=== PATIENT | female | born 1995 | race African-American/Black ===

== ENCOUNTER 2018-08-01 19:30 | Emergency (ER) | payer SELFPAY ==
[~2018-08-01] VITALS: Ht 165.1 cm; Wt 123.8 kg
--- OUTSIDE RECORDS SUMMARY | 2018-08-01 19:33 | XMS REPORT ---
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 Allergies, Adverse Reactions, Alerts Allergy Name Allergy Type Status Severity Reaction(s) Onset Date Inactive Date Treating Clinician Comments No Known Allergies DA Active U 2016-11-05 00:00:00 Medications This patient has no known medications.
== END 2018-08-01 22:00 | disposition home or self-care (01) ==
LOC: FSED 19:30
DX: R50.9 Fever, unspecified (principal); R05 Cough; J06.9 Acute upper respiratory infection, unspecified
CPT/HCPCS: 87400

== ENCOUNTER 2018-10-21 14:01 | Emergency (ER) | payer SELFPAY ==
[~2018-10-21] VITALS: Ht 165.1 cm; Wt 123.8 kg
[2018-10-21] MEDS ORDERED: DIPHTH/TETANUS/ACEL. PERTUSSIS 0.5 ML SYR IM ONE (16:00)
== END 2018-10-21 16:15 | disposition home or self-care (01) ==
LOC: FSED 14:01
DX: S91.202A Unspecified open wound of left great toe with damage to nail, initial encounter (principal); W51.XXXA Accidental striking against or bumped into by another person, initial encounter; Y92.008 Other place in unspecified non-institutional (private) residence as the place of occurrence of the external cause
CPT/HCPCS: 99283

== ENCOUNTER 2019-06-17 10:59 | Emergency (ER) | payer OTHER ==
[~2019-06-17] VITALS: Ht 165.1 cm; Wt 123.8 kg
== END 2019-06-17 12:10 | disposition home or self-care (01) ==
LOC: FSED 10:59
DX: M54.5 Low back pain (principal); N30.91 Cystitis, unspecified with hematuria; F41.9 Anxiety disorder, unspecified; F32.9 Major depressive disorder, single episode, unspecified
CPT/HCPCS: 81003; 81025; 99283

== ENCOUNTER 2019-07-01 09:42 | Emergency (ER) | payer OTHER ==
[~2019-07-01] VITALS: Ht 165.1 cm; Wt 131.5 kg
[2019-07-01] MEDS ORDERED: DEXAMETHASONE SOD PHOS 10 MG/1 ML VIAL IV ONE (10:15)
[2019-07-01] MEDS ORDERED: DIPHENHYDRAMINE HCL INJ 50 MG/ML VIAL IV ONE (10:15)
[2019-07-01] MEDS ORDERED: SODIUM CHLORIDE 0.9% 1000ML 1,000 ML IV STA (10:20)
[2019-07-01] MEDS ORDERED: ONDANSETRON HCL INJ 2MG/ML 2ML 2 MG/ML VIAL ONE (10:25)
[2019-07-01] MEDS ORDERED: SODIUM CHLORIDE 0.9% 1000ML 1,000 ML ONE (10:27)
[2019-07-01] MEDS ORDERED: ONDANSETRON HCL INJ 2MG/ML 2ML 2 MG/ML VIAL IV NR (10:30)
[2019-07-01 10:52] VITALS: BP 147/89
[2019-07-01] MEDS ORDERED: DEXAMETHASONE SOD PHOS 10 MG/1 ML VIAL ONE (11:23)
== END 2019-07-01 11:05 | disposition home or self-care (01) ==
LOC: FSED 09:42
DX: K52.9 Noninfective gastroenteritis and colitis, unspecified (principal); R51 Headache
CPT/HCPCS: 80053; 81003; 81025; 85025; 99283; J1100; J1200; J2405; J7030

== ENCOUNTER 2021-01-25 18:48 | Emergency (ER) | payer SELFPAY ==
[~2021-01-25] VITALS: Ht 165.1 cm; Wt 109.8 kg
== END 2021-01-25 20:48 | disposition home or self-care (01) ==
LOC: FSED 19:16
DX: N93.9 Abnormal uterine and vaginal bleeding, unspecified (principal); R10.30 Lower abdominal pain, unspecified; F41.9 Anxiety disorder, unspecified; F32.9 Major depressive disorder, single episode, unspecified; E66.01 Morbid (severe) obesity due to excess calories
CPT/HCPCS: 81003; 81025; 99283

== ENCOUNTER 2021-05-13 22:12 | Emergency (ER) | payer SELFPAY ==
[~2021-05-13] VITALS: Ht 165.1 cm; Wt 127.5 kg
[2021-05-13] MEDS ORDERED: PHENTERMINE H37.5 MG (23:51)
[2021-05-14] MEDS ORDERED: IBUPROFEN 600 MG TAB PO STA (00:28)
[2021-05-14] MEDS ORDERED: IBUPROFEN600 MG PO (00:34)
[2021-05-14] MEDS ORDERED: CYCLOBENZAPRINE10 MG PO (00:35)
== END 2021-05-14 00:51 | disposition home or self-care (01) ==
LOC: FSED 05-14 00:07
DX: S13.4XXA Sprain of ligaments of cervical spine, initial encounter (principal); V49.49XA Driver injured in collision with other motor vehicles in traffic accident, initial encounter; Y92.411 Interstate highway as the place of occurrence of the external cause; E66.01 Morbid (severe) obesity due to excess calories
CPT/HCPCS: 81025; 99283